=== PATIENT | male | born 1950 | race Caucasian/White ===

== ENCOUNTER 2017-02-03 10:00 | Day surgery (SDC) | payer BC ==
[2017-01-30 13:08] VITALS: BMI 34.0
[2017-02-03] MEDS ORDERED: cefTRIAXone\\ROCEPHIN 1 GM VIAL ONE (11:16)
[2017-02-03] MEDS ORDERED: Sodium Chloride 0.9% 100 ML ONE (11:17)
[2017-02-03] MEDS ORDERED: Fentanyl 100 MCG/2 ML VIAL ONE (12:11)
[2017-02-03] MEDS ORDERED: Glycopyrrolate 0.2 MG/ML 5 ML SYRINGE ONE (12:35)
[2017-02-03] MEDS ORDERED: Ondansetron HCl/PF 4 MG/2 ML Vial ONE (12:35)
[2017-02-03] MEDS ORDERED: Lidocaine 2% PF 10 ML AMP (For Epidural Use) ONE (12:35)
[2017-02-03] MEDS ORDERED: Dexamethasone 20 MG/5 ML VIAL ONE (12:35)
[2017-02-03] MEDS ORDERED: Propofol 200 MG/20 ML VIAL ONE (12:35)
[2017-02-03] MEDS ORDERED: PHENYLEPHRINE-NS 100 MCG/ML 10 ML SYRINGE ONE (12:35)
[2017-02-03] MEDS ORDERED: B & O ONE (13:28)
[2017-02-03] MEDS ORDERED: Phenazopyridine HCl 97.5 MG TABLET ONE (13:59)
[2017-02-03] MEDS ORDERED: Oxybutynin Chloride 5 MG TAB ONE (13:59)
--- NOTE | 2017-02-03 15:12 | RAD ---
RETROGRADE IVP INTRAPROCEDURE FLUOROSCOPY: Comparison: 01-26-17 FINDINGS: Intraprocedure fluoroscopy provided for Dr. Ballard. A single image demonstrates a left side uretera l stent and a wire projecting over the expected course of the right ureter. IMPRESSION: Fluoroscopy as above. POS: [facility]
--- NOTE | 2017-02-03 19:26 | OP ---
DATE OF PROCEDURE: 02/03/2017 SERVICE: Urology. SURGEON: Celestino Ballard M.D. PREOPERATIVE DIAGNOSIS: Bilateral ureteral stones. POSTOPERATIVE DIAGNOSIS: Bilateral ureteral stones. PROCEDURES PERFORMED: Right ureteroscopy, laser lithotripsy, basket extraction of stones and placem ent of a 6 x 28 double-J stent. INDICATIONS FOR PROCEDURE: Mr. Esparza is a 66-year-old white male with a long history of nephrolithi asis, who presented with bilateral ureteral stones. His pain was primarily on the right. He has an atrophic left kidney with a 2 cm stone and a distal 1 cm right stone with hydronephrosis and pain. He presented with an acute kidney injury and was extended bilaterally. He has been treated with an tibiotics and is now coming in for definitive stone management of the right-sided stone. Risks and benefits of the surgery have been discussed and he has agreed to proceed forward. DESCRIPTION OF PROCEDURE: After identification of armband and verification of consent, the patient was brought back to the operating room where he underwent general anesthesia with LMA. He was then placed in the dorsal lithotomy position and prepped and draped in usual sterile fashion. After appr opriate timeout, a lubricated 22-Romanian rigid cystoscope was introduced per urethra into the bladder . Both stents were seen emanating from ureteral orifices. Attention was turned to the right ureter al orifice and the stent, which was grasped with flexible graspers and removed to the level of the u rethral meatus. A 0.035 sensor wire was advanced through the ureteral stent up to the level of the renal pelvis. The stent was then removed and discarded and the wire affixed to the drapes as a safe ty wire. A semi-rigid ureteroscope was then passed alongside the sensor wire into the bladder and t hen into the right ureter, where immediately the stone was encountered within the distal ureter. Th ere was a very large brown stone with smooth appearance most likely consistent with calcium oxalate monohydrate. Fragmentation of the stone was performed with a 365 micron laser fiber until the entir e stone had been fragmented. The inside of the stones appeared to be layered likely in a composite type stone with calcium oxalate dihydrate and possibly calcium phosphate as well. Once the entire s tone had been fragmented, the 2.4 Romanian Gloria basket was used to grasp the stone fragments and rem ove them for stone analysis. Upon final ureteroscopy up to the level of the proximal ureter, no add itional stone fragments were encountered. The ureteroscope was then withdrawn and the cystoscope wa s backloaded over the sensor wire back into the bladder. A 6 x 28 double-J stent was advanced over the sensor wire up to the level of the renal pelvis and the wire removed leaving a good curl in the renal pelvis and good curl in the bladder. The bladder was then evacuated making sure to remove all stone fragments and then the cystoscope withdrawn. The patient had a 16-A B\T\O suppository placed in his rectum at the end of the case. It was noted the patient had an extremely large and inflamed hemorrhoid, which is probably needs to be treated at some point in the future. I will discuss this with the patient, upon recovery. COMPLICATIONS: None. ESTIMATED BLOOD LOSS: Minimal. RETAINED TUBES AND DRAINS: A 6 x 28 double-J stents bilaterally. SPECIMENS: Stone for stone analysis from the right ureter. DISPOSITION: The patient will be discharged home and follow up with me approximately in a week for left-sided ureteroscopy and removal of that stone. Risks and benefits of the surgery will be discus sed at that point.
--- NOTE | 2017-02-05 09:05 | EKG ---
Test Reason : PREOP Blood Pressure : / mmHG Vent. Rate : 075 BPM Atrial Rate : 075 BPM P-R Int : 168 ms QRS Dur : 122 ms QT Int : 404 ms P-R-T Axes : 045 008 129 degrees QTc Int : 451 ms Normal sinus rhythm Inferior infarct , age undetermined Abnormal ECG No previous ECGs available Confirmed by AKILAH WEBER ([id number]) on 02/05/2017 9:04:52 AM Referred By: MÓNICA Confirmed By:AKILAH WEBER
[2017-02-07 05:15] LABS: CA Oxalate Monohydrate 95 % (.); Color Brown (.)
== END 2017-02-03 15:00 | disposition home or self-care (01) ==
LOC: SDC 10:00
PROVIDERS: ATTEND Urology
PROC: 0T768DZ Dilation of Right Ureter with Intraluminal Device, Via Natural or Artificial Opening Endoscopic (ICD-10-PCS; principal; 2017-02-03)
PROC: 0TF68ZZ Fragmentation in Right Ureter, Via Natural or Artificial Opening Endoscopic (ICD-10-PCS; principal; 2017-02-03)
DX: N13.2 Hydronephrosis with renal and ureteral calculous obstruction (principal); N17.9 Acute kidney failure, unspecified; K64.9 Unspecified hemorrhoids; E11.9 Type 2 diabetes mellitus without complications; I10 Essential (primary) hypertension; F17.200 Nicotine dependence, unspecified, uncomplicated; E66.9 Obesity, unspecified; Z68.34 Body mass index [BMI] 34.0-34.9, adult; Z88.6 Allergy status to analgesic agent; Z88.1 Allergy status to other antibiotic agents; Z91.041 Radiographic dye allergy status; Z79.84 Long term (current) use of oral hypoglycemic drugs; Z79.82 Long term (current) use of aspirin; Z79.899 Other long term (current) drug therapy; Z90.89 Acquired absence of other organs; Z95.828 Presence of other vascular implants and grafts; Z98.890 Other specified postprocedural states
CPT/HCPCS: 36416; 74420; 82365; 88300; 93005; 93010; C1769; J0696; J1100; J2001; J2405; J2704; J3010; J7050

== ENCOUNTER 2017-02-10 07:56 | Outpatient (CLI) | payer BC ==
[2017-02-10 10:13] LABS: #Basophils 0.1 thou/uL (0.0-0.2); #Eosinphils 0.4 thou/uL (0.0-0.7); #Lymphocytes 2.9 thou/uL (1.20-3.40); #Monocytes 0.7 thou/uL (0.11-0.59); #Neutrophils 11.1 thou/uL (1.40-6.50); %Basophils 0.6 % (0.0-1.0); %Eosinophils 2.3 % (0.0-10.0); %Lymphocytes 18.9 % (21.0-51.0); %Monocytes 4.9 % (0.0-10.0); Hematocrit 49.6 % (42.0-52.0); Mean Platelet Volume 6.5 fL (7.4-10.4); Red Blood Cell (RBC) Count 5.38 mill/uL (4.70-6.10); White Blood Cell (WBC) Count 15.1 thou/uL (4.8-10.8)
[2017-02-10 10:22] LABS: PTT 26.9 SEC (22.9-36.1); Prothrombin Time 12.2 SEC (12.0-14.7)
== END 2017-02-10 07:57 | disposition home or self-care (01) ==
LOC: LABBT 07:56
PROVIDERS: ATTEND Urology
DX: Z01.818 Encounter for other preprocedural examination (principal); N20.1 Calculus of ureter
CPT/HCPCS: 85025; 85610; 85730; 87086

== ENCOUNTER 2017-02-12 05:54 | Day surgery (SDC) | payer BC ==
[2017-02-10 08:25] VITALS: BMI 34.0
[2017-02-12] MEDS ORDERED: Sodium Chloride 0.9% 100 ML ONE (06:25)
[2017-02-12] MEDS ORDERED: cefTRIAXone\\ROCEPHIN 1 GM VIAL ONE (06:25)
[2017-02-12 06:44] LABS: Anion Gap 14 mmol/L (10-20); BUN (Urea Nitrogen) 18 mg/dL (8.4-25.7); Calc. Creatinine Clearance 76 mL/min (70-130); Calcium 9.5 mg/dL (7.8-10.44); Carbon Dioxide 25 mmol/L (23-31); Chloride 101 mmol/L (98-107); Estimated GFR-MDRD 49
[2017-02-12] MEDS ORDERED: Midazolam HCl 2 mg/2 ml Vial ONE (06:45)
[2017-02-12] MEDS ORDERED: Fentanyl 100 MCG/2 ML VIAL ONE (06:45)
[2017-02-12] MEDS ORDERED: Iothalamate Meglumine 60% 50 ML VIAL FS ONE (06:50)
[2017-02-12] MEDS ORDERED: Iopamidol 0 ML ONE (07:12)
[2017-02-12] MEDS ORDERED: Ioversol 68 % 50 ML VIAL ONE (07:13)
[2017-02-12] MEDS ORDERED: ePHEDrine/0.9% NaCl/PF SYRINGE 50 mg/10 ml ONE (07:47)
[2017-02-12] MEDS ORDERED: Lidocaine 1% PF 5 ML VIAL ONE (07:47)
[2017-02-12] MEDS ORDERED: Glycopyrrolate 0.2 MG/ML 5 ML SYRINGE ONE (07:47)
[2017-02-12] MEDS ORDERED: Ondansetron HCl/PF 4 MG/2 ML Vial ONE (07:47)
[2017-02-12] MEDS ORDERED: PHENYLEPHRINE-NS 100 MCG/ML 10 ML SYRINGE ONE (07:47)
[2017-02-12] MEDS ORDERED: Propofol 200 MG/20 ML VIAL ONE (07:47)
--- NOTE | 2017-02-12 09:25 | RAD ---
IVP RETROGRADE: History: Renal stone. FINDINGS/IMPRESSION: Single spot fluoroscopic image during the left sided retrograde pyelogram demonstrates placement of a left ureteral stent. The inferior aspect of the stent has been excluded from the film. POS: [facility]
--- NOTE | 2017-02-12 12:09 | OP ---
DATE OF PROCEDURE: 02/12/2017 SERVICE: Urology SURGEON: Dr. Celestino Ballard PREOPERATIVE DIAGNOSIS: Left ureteral stone. POSTOPERATIVE DIAGNOSIS: Left ureteral stone. PROCEDURE PERFORMED: Left ureteroscopy, laser lithotripsy, stone basket extraction of stone, and re placement of a 6 x 28 double-J stent with removal of the right-sided ureteral stent. INDICATIONS FOR PROCEDURE: Mr. Esparza is a 66-year-old white male who presented with bilateral urete ral stones and renal failure. The right kidney has already been unobstructed with ureteroscopy of t hat side and removal of a large 1 cm stone on that side. He has the stent still in which is going t o be removed today. His left-sided stone is even larger and does show cortical atrophy and possible renal damage. It is unknown how long this stone has been in place is extremely large and we have e lected to go ahead and remove it, so we can stage the kidney and find out how well it works. All ri sks and benefits of the surgery have been discussed preoperatively and he understands and wishes to proceed forward. DESCRIPTION OF PROCEDURE: After identification of arm band and verification of consent, the patient was brought back to the operating room where he underwent general anesthesia with an endotracheal i ntubation. He was then placed in dorsal lithotomy position, prepped and draped in usual sterile fas hion. After appropriate timeout, lubricated 22 Chinese rigid cystoscope was introduced per urethra i nto the bladder. Attention was first turned to the right ureteral orifice from which the stent was grasped and removed in its entirety. The cystoscope was then reintroduced back into the bladder and attention turned to the left ureteral orifice. The stent was grasped and removed to the level of t he urethral meatus. A 0.035 sensor wire was then advanced through the ureteral stent up to the leve l of the stone, with some navigation the wire was able to be navigated past the stone into the renal pelvis. The stent was then removed and discarded. A dual-lumen catheter was advanced over the sen sor wire into the level of the mid ureter. An Amplatz Super Stiff wire was then passed through the second lumen of the dual-lumen catheter up to the level of the stone. The Super Stiff wire could no t be navigated past the stone; therefore it was just left coiled proximal to the stone and the dual lumen removed. A 13/15 x 36 cm ureteral access sheath was then advanced over the Amplatz Super Sti ff wire to the level of the proximal ureter just proximal to the stone. The Super Stiff wire was th en removed along with the inner cannula leaving the outer sheath and the sensor wire in place as a s afety wire. A digital flexible ureteroscope was then passed through the ureteral access sheath up t o the level of the proximal ureter where the stone was encountered. The stone was extremely large. A 365 micron laser fiber was then used to fragment the stone completely on the dust settings. Lase r lithotripsy was performed for approximately 1 hour and 20 minutes at which point the stone was com pletely fragmented. Most stone fragments were too small to basket as they were extremely little fro m the dust setting used on the laser. There were a couple of larger fragments which were grasped wi th the 0 tip nitinol basket and removed for stone analysis. There were several pieces of stone whic h were embedded within the ureteral wall which had to be lasered off as they could not be extracted or pushed off with the basket or the ureteroscope. There was mild mucosal trauma as a result of thi s, but I did feel that leaving the stone embedded on the wall could a significantly increase the ris k for recurrence of stone disease in the future. The patient will be at high risk for ureteral stri cture in this location. Nonetheless, all the large stone fragments were cleared and a pyeloscopy wi thin the kidney did not demonstrate any significant large sized stone fragments. There was a signif icant amount of debris from the ureteroscopy and it was difficult to inspect to ensure that there we re no large pieces, but the best I could tell, it is felt that all the larger pieces had been remove d. It is possible that there are a few larger pieces still there that were hiding amongst the slurr y of other stone particulate but I felt at this point not being able to visualize any other large st ones and feeling that the majority of the stone had been removed, we pulled back with ureteroscope a nd the ureteral access sheath, pull back ureteroscopy and no other stones were found within the uret er. The cystoscope was then backloaded over the sensor wire back into the bladder. A 6 x 28 double -J stent was advanced over the sensor wire up to the level of the renal pelvis. The wire was then r emoved leaving a good curl in the renal pelvis and good curl in the bladder. The bladder was then e mptied and the cystoscope removed. The patient was then awakened and taken to PACU for recovery in stable condition. COMPLICATIONS: None. ESTIMATED BLOOD LOSS: Minimal. RETAINED TUBES AND DRAINS: A 6 x 28 double-J stent on the left. SPECIMENS: Stone for stone analysis. DISPOSITION: The patient will be discharged home and follow up with me in 2 weeks for cystoscopy an d stent removal.
== END 2017-02-12 11:23 | disposition home or self-care (01) ==
LOC: SDC 05:54
PROVIDERS: ATTEND Urology
PROC: 0T778DZ Dilation of Left Ureter with Intraluminal Device, Via Natural or Artificial Opening Endoscopic (ICD-10-PCS; principal; 2017-02-12)
PROC: 0TF78ZZ Fragmentation in Left Ureter, Via Natural or Artificial Opening Endoscopic (ICD-10-PCS; principal; 2017-02-12)
DX: N20.1 Calculus of ureter (principal); E78.5 Hyperlipidemia, unspecified; F17.210 Nicotine dependence, cigarettes, uncomplicated; I10 Essential (primary) hypertension; E11.9 Type 2 diabetes mellitus without complications; N52.9 Male erectile dysfunction, unspecified; K21.9 Gastro-esophageal reflux disease without esophagitis; E66.9 Obesity, unspecified; Z68.34 Body mass index [BMI] 34.0-34.9, adult; Z88.1 Allergy status to other antibiotic agents; Z88.6 Allergy status to analgesic agent; Z91.041 Radiographic dye allergy status; Z79.82 Long term (current) use of aspirin; Z79.84 Long term (current) use of oral hypoglycemic drugs; Z79.899 Other long term (current) drug therapy; Z98.890 Other specified postprocedural states; Z96.0 Presence of urogenital implants
CPT/HCPCS: 74420; 80048; 82365; 88300; 96374; C1758; C1769; J0360; J0696; J2001; J2250; J2405; J2704; J3010; J7050; Q9961; Q9967

== ENCOUNTER 2017-04-08 14:15 | Outpatient (CLI) | payer BC ==
[2017-04-08 14:41] LABS: Anion Gap 11 mmol/L (10-20); BUN (Urea Nitrogen) 19 mg/dL (8.4-25.7); Calc. Creatinine Clearance 0 mL/min (70-130); Calcium 10.2 mg/dL (7.8-10.44); Carbon Dioxide 31 mmol/L (23-31); Chloride 97 mmol/L (98-107); Estimated GFR-MDRD 48
--- NOTE | 2017-04-08 15:56 | ULT ---
BILATERAL RENAL ULTRASOUND: Date: 04/08/17 HISTORY: Renal stones. COMPARISON: 01/27/17. TECHNIQUE: Utilizing a multihertz transducer, sonographic imaging of kidneys performed in the longitudinal and transverse plane. FINDINGS: Right Kidney: No hydronephrosis. 5.4 x 5.8 x 13.9 cm. Left Kidney: There is mild dilatation of the intrarenal collecting system. 11.4 x 5.7 x 4.5 cm. Urinary bladder is unremarkable. Prostate gland measures 3.7 x 2.6 x 4.0 cm. IMPRESSION: Moderate left-sided hydronephrosis. POS: [facility]
== END 2017-04-08 14:16 | disposition home or self-care (01) ==
LOC: ULT 14:15
PROVIDERS: ATTEND Urology
DX: N20.0 Calculus of kidney (principal); N13.30 Unspecified hydronephrosis
CPT/HCPCS: 76770; 80048

== ENCOUNTER 2018-04-14 14:49 | Outpatient (CLI) | payer BC ==
--- NOTE | 2018-04-14 17:22 | ULT ---
ULTRASOUND RETROPERITONEUM COMPLETE: (RENAL) 04/14/18 HISTORY: 67-year-old male with renal calculus. COMPARISON: 04/08/17. FINDINGS: Because of body habitus, there is poor visualization of detail of the bilateral kidneys. The right ki dney measures 13.5 x 6 x 6 cm. The left kidney measures 13 x 6.5 x 7 cm. Both kidneys have normal c ortical thickness and normal cortical echogenicity. There is no hydronephrosis. Cursory images of t he urinary bladder demonstrate no gross abnormality. Prevoid urinary bladder volume is 325 mL. A post void bladder image was not obtained. The previously demonstrated left hydronephrosis has resolved. IMPRESSION: No definite pathology identified. hanane [] POS: [facility]
== END 2018-04-14 14:50 | disposition home or self-care (01) ==
LOC: ULT 14:49
PROVIDERS: ATTEND Urology
DX: N20.0 Calculus of kidney (principal)
CPT/HCPCS: 76770

== ENCOUNTER 2018-04-29 06:09 | Outpatient (CLI) | payer BC ==
[2018-04-29 08:05] LABS: ALT (SGPT) 34 U/L (8-55); AST (SGOT) 22 U/L (5-34); Albumin 4.3 g/dL (3.4-4.8); Alkaline Phosphatase 76 U/L (40-150); Anion Gap 17 mmol/L (10-20); BUN (Urea Nitrogen) 17 mg/dL (8.4-25.7); Calc. Creatinine Clearance 0 mL/min (70-130); Calcium 9.8 mg/dL (7.8-10.44); Carbon Dioxide 25 mmol/L (23-31); Cardiac Risk 3.3 (Less than 4.5); Chloride 98 mmol/L (98-107); Cholesterol 105 mg/dl (< 200 Desired); Estimated GFR-MDRD 51; Globulin 3.3 g/dL (2.4-3.5); Glucose 176 mg/dL (80-115); HDL Cholesterol 32 mg/dL (>60 Neg Risk); LDL Cholesterol, Calculated 48 mg/dL; Potassium 4.5 mmol/L (3.5-5.1); Protein, Total 7.6 g/dL (5.8-8.1); Sodium 135 mmol/L (136-145); Triglycerides 126 mg/dL (Less than 150)
[2018-04-29 10:00] LABS: Hemoglobin A1c 9.5 % (4.0-6.0)
[2018-04-29 10:25] LABS: Creatinine, Urine 116.64 mg/dL (63-166); Microalbumin Urine 5.5 mg/dL (0.5-50.0); Microalbumin/Creat Ratio 47.2 mg/g (Less than 30)
== END 2018-04-29 06:10 ==
LOC: SCSLAB 06:09
PROVIDERS: ATTEND Family Medicine
DX: E78.5 Hyperlipidemia, unspecified (principal); E11.65 Type 2 diabetes mellitus with hyperglycemia
CPT/HCPCS: 36415; 80053; 80061; 82043; 83036

== ENCOUNTER 2019-04-04 20:30 | Outpatient (CLI) | payer BC, MEDICARE | END 2019-04-04 20:31 | disposition home or self-care (01) | LOC: SLEEPLAB 20:30 | PROVIDERS: ATTEND Family Medicine | DX: R06.83 Snoring (principal); G47.33 Obstructive sleep apnea (adult) (pediatric); E66.9 Obesity, unspecified; I10 Essential (primary) hypertension; E11.9 Type 2 diabetes mellitus without complications | CPT/HCPCS: 95810 ==

== ENCOUNTER 2019-05-06 20:30 | Outpatient (CLI) | payer MEDICARE, BC | END 2019-05-06 20:31 | disposition home or self-care (01) | LOC: SLEEPLAB 20:30 | PROVIDERS: ATTEND Family Medicine | DX: G47.33 Obstructive sleep apnea (adult) (pediatric) (principal); E66.9 Obesity, unspecified; R06.83 Snoring; I10 Essential (primary) hypertension; E11.9 Type 2 diabetes mellitus without complications; G47.10 Hypersomnia, unspecified; Z68.38 Body mass index [BMI] 38.0-38.9, adult | CPT/HCPCS: 95811 ==

== ENCOUNTER 2021-01-04 14:12 | Outpatient (CLI) | payer MEDICARE, BC | END 2021-01-04 14:13 | disposition home or self-care (01) | LOC: BICULT 14:12 | PROVIDERS: ATTEND Urology | DX: N20.0 Calculus of kidney (principal) | CPT/HCPCS: 76770 ==

== ENCOUNTER 2023-11-04 15:15 | Outpatient (CLI) | payer MEDICARE | END 2023-11-04 15:16 | disposition home or self-care (01) | LOC: ULT 15:15 | PROVIDERS: ATTEND Family Medicine | DX: R10.9 Unspecified abdominal pain (principal) | CPT/HCPCS: 76770 ==